=== PATIENT | male | born 1985 | race Hispanic/Latino ===

== ENCOUNTER 2022-09-03 14:26 | Outpatient (CLI) | payer BC | END 2022-09-03 14:27 | disposition home or self-care (01) | LOC: ULT 14:26 → EDBD 15:00 | PROVIDERS: ATTEND Student in an Organized Health Care Education/Training Program | DX: N50.89 Other specified disorders of the male genital organs (principal); I86.1 Scrotal varices | CPT/HCPCS: 76870; 93976 ==